=== PATIENT | male | born 1955 | race Caucasian/White ===

== ENCOUNTER → 2022-08-03 | Outpatient (CLI) | payer MEDICARE, SELFPAY ==
--- NOTE | 2022-08-03 15:55 | RAD_ITS ---
INDICATION: R 5TH METACARPAL PAIN EXAMINATION/TECHNIQUE: X-RAY - RIGHT XR Hand Min 3 Views 3 VIEWS COMPARISON: FINDINGS: SOFT TISSUES: No soft tissue swelling or gas. No radiopaque foreign body. 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 INDICATION: R 5TH METACARPAL PAIN EXAMINATION/TECHNIQUE: X-RAY - RIGHT XR Hand Min 3 Views 3 VIEWS COMPARISON: FINDINGS: SOFT TISSUES: No soft tissue swelling or gas. No radiopaque foreign body. 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 RAD/Hand Min 3 Views IMPRESSION: IMPRESSION: Degenerative changes as above. Fifth metacarpal appears intact. Electronically Signed: Jonathan Velazquez MD, DEUCE at 17:41 EDT ,
== END | disposition home or self-care (01) ==
LOC: RAD 15:54
PROVIDERS: PCP Nurse Practitioner Family; Referring Provider Nurse Practitioner Family; Visit Provider Nurse Practitioner Family
DX: M79.644 Pain in right finger(s) (principal)
CPT/HCPCS: 73130